=== PATIENT | male | born 1925 | race Caucasian/White ===

== ENCOUNTER 2016-10-05 02:54 | Day surgery (SDC) | payer MEDICARE, BC ==
[~2016-10-05] VITALS: Ht 182.9 cm; Wt 86.2 kg
[~2016-10-05 02:54] MED LIST: HYDROCHLOROTHIA25 M1 PO; LIDODERM 5% PA1 EACH
[2016-10-05] MEDS ORDERED: TAMSULOSIN HCL0.4 MG PO (03:06)
[2016-10-05] MEDS ORDERED: LOSARTAN POTAS100 MG PO (03:06)
--- OUTSIDE RECORDS SUMMARY | 2016-10-05 03:10 | External Medical Summary Rpt ---
Author Author MEENA Flores, [employer] Organization [employer] Address Unknown Phone Unavailable
--- OUTSIDE RECORDS SUMMARY | 2016-10-05 03:10 | External Medical Summary Rpt ---
Demographics Preferred Language Chinese Marital Status Unknown Worship Affiliation Unknown Race Unknown Ethnic Group Unknown Author Author MEE[employer] Address Unknown Phone Immunization No patient found.
--- OUTSIDE RECORDS SUMMARY | 2016-10-05 03:10 | External Medical Summary Rpt ---
Demographics Preferred Language Icelandic Marital Status Unknown Advent Affiliation Unknown Race Unknown Ethnic Group Unknown Author Author [employer] Address Unknown Phone Immunization No patient found.
--- OUTSIDE RECORDS SUMMARY | 2016-10-05 03:10 | External Medical Summary Rpt ---
Author Author MEENA Address Unknown Phone [email or web address] Purpose Continuity of Care Document - through 2016
--- OUTSIDE RECORDS SUMMARY | 2016-10-05 03:10 | External Medical Summary Rpt ---
Author Author MEENA Address Unknown Phone [email or web address] Purpose Continuity of Care Document - through 2016
--- OUTSIDE RECORDS SUMMARY | 2016-10-05 03:10 | External Medical Summary Rpt ---
Author Author [employer] Organization [employer] Address Unknown Phone Unavailable Purpose Continuity of Care Document - through 2016
--- NOTE | 2016-10-05 03:48 | Emergency Room Report ---
History of Present Illness Time Seen by 0308 Presenting Problem in Triage Pt arrived:Walked Presenting Problem:PT RPTS HE ATE BBQ PORK LAST NIGHT AROUND 1800 AND "FEELS LIKE IT'S LODGED IN THERE, AND I CAN'T DRINK ONE DROP OF WATER. BUT I FEEL LIKE MY BREATHING IS OK." PT RPTS SIMILAR INTANCES IN THE PAST. 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 N Clinical Suspician of Infection? N Mental Status: 1 - Regular (Normal Baseline) Sepsis Risk:Low Sepsis Risk Have you (or family members/close friends) recently traveled outside the [place]? N If Yes, where/when: Have you had exposure to infectious disease within the past month? N TB? Other? Specify: Comment The patient ate barbecued pork at 6 PM and feels like it stuck in his esophagus, about midway down. Since then he has not been able to eat or drink or swallow saliva. This is happened in the past over the course of several years, but it always resolves itself within a few minutes. He has not had to have a scope. ALLERGIES Coded Allergies: No Known Allergies (10/05/16) Home Medications Reported Medications Losartan Potassium (Losartan 100MG) 100 MG PO DAILY #90 TAMSULOSIN HCL (Tamsulosin HCl) 0.4 MG PO QHS #90 History Medical History General CAD? No Angina: No [place]: No Hypertension? Yes Hyperlipidemia? No CHF? No DVT? No PE? No COPD? No Asthma? No Anemia? No GERD? No Gastric ulcers? No GI Bleed? No Hernia? No Thyroid Problems? No Hypothyroidism? No CVA? No Seizures? No Diabetes? No Renal Insuffiency? No End Stage Renal Disease? No UTI? No Stones? 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 No Asplenia? No Hepatitis? No Sickle Cell Disease? No Arthritis? No Migraines? No Cataracts? No Glaucoma? No MRSA? No HIV? No TB? No Anxiety? No Depression? No Cancer? No More? Yes Additional hx: MACULAR DEGENERATION Immunization Hx DT/Tetanus Unknown Surgical Hx Previous Surgery?Y Orthopedic BILATERAL KNEE CATARACTS Social History Smoking Hx Smoker: Never Smoker Tobacco: No Alcohol Alcohol: No Review of Systems All Other Systems Reviewed and Negative Respiratory denies shortness of breath Cardiovascular denies chest pain Gastrointestinal see HPI Physical Exam Vital Signs Vital Signs Date Time Temp Pulse Resp B/P Pulse O2 O2 Flow FiO2 Ox Delivery Rate 10/05 0456 83 20 143/89 94 10/05 0342 92 20 138/81 94 10/05 0300 97.8 76 18 188/98 97 General Appearance normal appearance, WD/WN Eye Exam - bilateral eye normal exam, bilateral eye PERRL, bilateral eye EOMI Ear, Nose, Throat hearing grossly normal, normal ENT inspection Neck normal inspection, non-tender, supple, full range of motion Respiratory Status Yes: trachea midline, chest symmetrical, non tender chest. No: respiratory distress. Lung Sounds bilateral: normal breath sounds, lungs clear. Cardiovascular normal exam, regular rate/rhythm, no peripheral edema, no gallop, no JVD, no murmur, no rub, normal peripheral pulses Peripheral Pulses Pulses normal Yes Gastrointestinal normal bowel sounds, normal exam, non tender, soft, no organomegaly Extremities non-tender, normal range of motion, normal inspection Neurologic alert, home health care respiratory therapist II-XII nml as tested, normal exam, oriented x 3 Mental status normal mood/affect Skin intact, normal color, warm/dry Medical Decision Making LABS/Meds/Orders Pt receiving controlled substance in ED? No Results/Orders Laboratory Tests 10/05/16 0340: Sodium 137, Potassium 4.2, Chloride 101, Carbon Dioxide 29, BUN 17, Creatinine 1.1, Estimated Creat Clear 57, Estimated GFR (MDRD) 63, Glucose 119 H, Calcium 9.4, Total Bilirubin 0.5, AST Pending, ALT 26, Alkaline Phosphatase 98, Total Protein 7.3, Albumin 3.9, Globulin 3.4 H, Albumin/Globulin Ratio 1.1, WBC 8.6, RBC 4.33 L, Hgb 13.5 L, Hct 40.0 L, MCV 92.5, RDW 13.9, Plt Count 246, MPV 7.2 L, Gran % 86.4 H, Gran # 8.2 H, Total Counted Pending, Lymphocytes % 9.0 L, Monocytes % 3.8, Eosinophils % 0.3, Basophils % 0.5, Neutrophils Pending, Lymphocytes (Manual) Pending, Lymphocytes # 0.9, Monocytes # 0.4, Eosinophils # 0.0, Basophils # 0.0, Platelet Estimate Pending, PUBS MCHC 33.8, MCH 31.3 H Current Medication Orders Sig/Deon Start time Last Medication Dose Route Stop Time Status Admin Glucagon 1 MG ONCE ONE 10/06 399 DC 10/05 IV 10/05 400 0357 Glucagon 0 .STK-MED ONE 10/05 352 DC .ROUTE Sodium Chloride 10 ML PRN PRN 10/05 033 AC IV 10/06 033 Orders Procedure Date/time Status DIET-NOTHING BY MOUTH 10/05 B Active CHEM 12 PROFILE 10/05 0509 Active DIFFERENTIAL-WBC 10/06 339 Active CBC WITH AUTO DIFF 10/05 332 Active IV SALINE LOCK 10/05 329 Active Progress - 4:50 AM: No response to glucagon. Case discussed with Dr. Pate. He requests that house painting instructor call in the endoscopy team. Departure Departure Disposition Still a Patient Clinical Impression Primary Impression: Food impaction of esophagus Qualifiers: Encounter type: initial encounter Qualified Code: T18.128A - Food in esophagus causing other injury, initial encounter Condition STABLE Referrals Vickey ARELLANO,Keanu Rojas (Family) ED Critical Care Critical Care No at [id number]
[2016-10-05 04:11] LABS: HEMOGLOBIN 13.5 g/dL (14.1-18.0); LYMPH # 0.9 K/mm3 (0.7-4.5)
--- NOTE | 2016-10-05 06:49 | Operative Note ---
Surgeon/Diagnoses Surgeon/Liquid Sugar Fortifier(s) Date of procedure: 10/05/16 Surgeon: MD Charlie Pate Diagnoses Pre-op diagnosis: Esophageal foreign body Post-op diagnosis Same Procedure Procedure Procedure: Esophagogastroduodenoscopy with foreign body removal Indications: ROSI THOMAS is a 89 year-old Male with a history of inability to swallow after a meal of barbecue pork at 6:00 last evening. Findings: Large bolus of finally shredded food particles within distal esophagus Inflammatory changes in distal esophagus and possible small mass lesion Gastritis Duodenitis Procedure Description: After informed consent was obtained, the patient was taken to the endoscopy suite. Monitored anesthesia care ensued after he was transferred to the LEFT lateral decubitus position. The gastroscope was advanced. The large bolus of 5 the shredded food particles consistent with history of "barbecue pork" was encountered. The mass lesion cannot be easily extracted or push forward. Multiple passes utilizing the Hickey net were utilized to remove the food particles in a piecemeal fashion. The gastroscope was advanced into the stomach. Inflammatory changes were noted. The pylorus was intubated. Duodenitis was also noted. Evaluation of the gastroesophageal junction revealed fairly significant inflammation and a small area that was consistent with possible mass-type lesion. No biopsies were obtained secondary to the severe inflammatory response and the decision was made to proceed with repeat esophagogastroduodenoscopy in 1 -2 weeks. EBL (ml): 0 Anesthesia: Monitored anesthesia care Complications: No immediate Specimens: Foreign body removed, but not sent for pathologic evaluation Disposition Disposition: Stable to recovery from where he will be discharged home. He will follow up in one week. at 0670
--- NOTE | 2016-10-05 07:08 | Anesthesia Record ---
Anesthesia Record Part II Discharge time: 644 Destination: Same day surgery PACU nurse assessment review? Yes Patient is: Stable Anesthesia complications? No at 0708
--- NOTE | 2016-10-05 07:08 | Anesthesia Record ---
Anesthesia Record Part I Total IV fluids: 1200 EBL (ml): 0 Urine Output: 0 B/P: 85/43 % SaO2: 96 Pulse: 83 Resps: 16 Temp: 97.8 Patient is: Drowsy, Stable Stable to PACU at: 0645 (sds) at 0707
[2016-10-05 07:11] LABS: NEUTROPHILS 81 % (42-76)
[2016-10-05 11:48] VITALS: BP 158/76
[2016-10-05] MEDS ORDERED: BACTRIM 400 MG-1 TAB PO (17:15)
[2016-10-07] MEDS ORDERED: HYDROCHLOROTH12.5 M2 PO (12:55)
== END 2016-10-05 08:50 | disposition home or self-care (01) ==
LOC: ER 02:54 → SDC 06:12
PROVIDERS: Emergency Medicine; Surgery
PROC: 0DC58ZZ Extirpation of Matter from Esophagus, Via Natural or Artificial Opening Endoscopic (ICD-10-PCS; principal; 2016-10-05 05:30)
DX: T18.128A Food in esophagus causing other injury, initial encounter (principal)